=== PATIENT | female | born 1980 | race Caucasian/White ===

== ENCOUNTER 2019-10-17 02:19 | Outpatient (CLI) | payer OTHER, SELFPAY ==
[2019-10-17 18:39] LABS: SARS-CoV-2 RNA PCR Negative
== END 2019-10-17 02:20 | disposition home or self-care (01) ==
LOC: ANHCOVIDDT 02:19
PROVIDERS: Visit Provider Obstetrics & Gynecology
DX: Z01.812 Encounter for preprocedural laboratory examination (principal); Z11.59 Encounter for screening for other viral diseases
CPT/HCPCS: 87635; C9803; U0003

== ENCOUNTER 2019-10-19 01:56 | Day surgery (SDC) | payer OTHER, SELFPAY ==
[2019-10-15 19:12] VITALS: BMI 30.4
--- NOTE | 2019-10-16 13:35 | PM.IMHP ---
H&P: HPI History of Present Illness Chief complaint: Incomplete Ab Narrative: Tessie Velázquez is a 39 year old female admitted for suction D&C secondary to retained products of conception. She underwent termination and has ultrasound Messer proven retained products this and benefits reviewed Review of Systems Review of Systems: All systems reviewed & are unremarkable except as noted in HPI and below PMFSH Social History Social History Smoking status: Never smoker Second hand tobacco smoke exposure: No Alcohol intake: former Substance use: former Substance use type: marijuana Spiritual care concerns: No Meds Home Medications and Allergies Home Medications Medication Instructions Recorded Confirmed Type ibuprofen [Advil] 400 mg PO Q6H PRN 10/15/19 10/15/19 History Allergies Allergy/AdvReac Type Severity Reaction Status Date / Time No Known Allergies Allergy Verified 10/15/19 18:42 Exam Const: General: no acute distress Eyes: General: appearance normal, both eyes and all related structures Neck: Neck: supple and no JVD Thyroid: thyroid normal Resp: Effort & Inspection: normal respiratory effort Auscultation: clear to auscultation bilaterally Cardio: Rate: regular rate Rhythm: regular rhythm GI: Inspection: non-distended GI Palp: Yes Soft to palpation, No Tenderness to palpation present (GI) and No Guarding due to palpation present (GI) Auscultation: normal bowel sounds : General: Yes bladder normal to palpation External Female Exam: normal external appearance Speculum Exam - Vagina: normal vaginal discharge and No vaginal bleeding Speculum Exam - Cervix: nontender Bimanual exam- vagina & uterus: bladder normal to palpation and No Cervical tenderness present OB/external & speculum: No vaginal bleeding Skin: General skin exam: no rashes or lesions noted Extrem: General: normal to inspection and no edema Psych: Mental Status: mental status grossly normal Affect: normal affect Assessment and Plan Additional Plan impression: Retained products Plans: Suction dilatation curettage
--- NOTE | 2019-10-19 02:40 | WPDHPUPDATE1 ---
History and Physical Update Update Date/Time: 10/19/19 02:40 History and Physical has been reviewed, including an updated exam of the patient. There are NO changes in the patient's condition. Risks, benefits, and alternatives have been discussed and questions answered. Patient agrees to proceed with procedure.
--- NOTE | 2019-10-19 11:19 | WPDANESEPPF ---
Anes - Initial Pre Proc Eval Procedure: Operation Date: 10/19/19 13:30 Proposed Procedures p Suction Dilation And Curettage - Jerrell Nagy MD Date/Time: 10/19/19 11:19 Surgeon: Jerrell Nagy MD Pre Op Diagnosis: Incomplete Ab Patient Data Age: 39 Gender: F Height: 1.65 m Weight: 83.01 kg Allergies Allergy/AdvReac Type Severity Reaction Status Date / Time No Known Allergies Allergy Verified 10/15/19 18:42 Home Medications Medication Instructions Recorded Confirmed Type ibuprofen [Advil] 400 mg PO Q6H PRN 10/15/19 10/15/19 History hydrocodone-acetaminophen [[place]] 1 tablet PO Q4H PRN #20 tablet 10/19/19 Rx Patient hx anesthesia problems: none Family hx anesthesia problems: none PMFSH Past Medical History Medical History (Updated 10/19/19 @ 11:19 by Rio Del Real MD) Obesity Social History Social History Smoking status: Never smoker Second hand tobacco smoke exposure: No Alcohol intake: former Alcohol use details: occasionally Substance use: former Substance use type: marijuana Living arrangements: with family Spiritual care concerns: No Anes - Eval Final PreProcedure Day of Procedure 10/19/19 11:19 Patient weight: obese Heart: regular rate and rhythm Lungs: clear to auscultation and normal air movement Airway: Mallampati scale class II Neurological: alert and oriented Last oral intake: >/= 8 hours ASA classification: II Emergent: no Anesthetic plan: proceed Anesthesia type and monitoring: general GIVS and LMA Informed Consent: The patient's anesthetic plan and its attendant risks and benefits were discussed with the patient/family/POA. Questions were solicited and answers provided to the satisfaction of the patient/family/POA.
[2019-10-19 11:51] VITALS: BP 124/82; PULSE 89; RESP 17; TEMP 36.7; O2SAT 98
[2019-10-19] MEDS: LACTATED RINGERS 1,000 ML 30 ML IV CONT (12:10)
[2019-10-19] MEDS: ACETAMINOPHEN 500 MG TABLET 1000 MG PO (12:15)
[2019-10-19 12:24] LABS: Hematocrit 40.8 % (37.0-47.0); Hemoglobin 13.9 g/dL (12.0-15.0)
--- NOTE | 2019-10-19 13:29 | P.OP_ITS ---
Procedure Note - Detailed Date of procedure: 10/19/19 Pre-op diagnosis: Incomplete Ab Surgeon: Jerrell Nagy MD Postop diagnosis: Incomplete AB Procedure: Suction dilatation curettage EBL: 5Cc Anesthesia: IV sedation local Complications: None Findings: Minimal tissue Description of procedure: Patient was prepped draped in normal sterile fashion placed in dorsal lithotomy position. Under excellent IV sedation weighted speculum placed in posterior fornix of vagina. Anterior lip of the cervix gras ped with a single-tooth tenaculum. Uterus sounded to 9cm. 2.5cc of 1% xylocaine anesthesia placed at 2:48 a.m. and 10:00 a.m. respectively of the cervix. Serial dilatation with fragmented dilators performed followed passes of the 9. Suction curette removing a minimal amount of irregular tissue. When a good grating sound was heard the instruments removed. There were no immediate complications. All sponge, needle, instrument counts were correct. Patient went to recovery in satisfactory condition
[2019-10-19 13:31] VITALS: BP 134/91; PULSE 82; RESP 16
[2019-10-19 14:01] VITALS: BP 128/72; PULSE 85; RESP 16
[2019-10-19 14:15] VITALS: BP 132/75; PULSE 78; RESP 16
== END 2019-10-19 14:30 | disposition home or self-care (01) ==
PROVIDERS: PCP Physician Assistant; Visit Provider Obstetrics & Gynecology
PROC: (CPT 59812; principal; 2019-10-19 13:30)
DX: O03.4 Incomplete spontaneous abortion without complication (principal)
CPT/HCPCS: 59812; 36415; 85014; 85018; 85461; 88305; A9270; J2250; J2704; J3010; J7120

== ENCOUNTER 2020-07-02 17:15 | Outpatient (CLI) | payer OTHER, SELFPAY | END 2020-07-02 17:16 | disposition home or self-care (01) | LOC: ANHCOVIDVC 17:15 | PROVIDERS: PCP Physician Assistant | DX: Z23 Encounter for immunization (principal) | CPT/HCPCS: 0001A; 91300 ==

== ENCOUNTER 2020-07-23 17:08 | Outpatient (CLI) | payer OTHER, SELFPAY | END 2020-07-23 17:09 | LOC: ANHCOVIDVC 17:09 | PROVIDERS: PCP Physician Assistant | DX: Z23 Encounter for immunization (principal) | CPT/HCPCS: 0002A; 91300 ==

== ENCOUNTER → 2021-08-10 15:10 | Outpatient (CLI) | payer BC, SELFPAY ==
--- NOTE | ~2021-08-10 | MM_ITS ---
EXAMINATION: MM screening berna BI w navi HISTORY: Screening mammogram TECHNIQUE: Craniocaudal and mediolateral oblique 3-D tomosynthesis images were obtained and synthetic 2-D images were generated. CAD analysis was submitted and interpreted. COMPARISON: None, baseline BREAST PARENCHYMAL COMPOSITION: There are scattered areas of fibroglandular density. FINDINGS: There is no suspicious mass, calcification, or architectural distortion to suggest malignan cy in either breast. IMPRESSION: 1. No mammographic evidence of malignancy. 2. Recommend routine screening mammography in one year. BI-RADS Category 1: Negative Reviewed, dictated and finalized at location A.
== END ==
PROVIDERS: PCP Physician Assistant; Visit Provider Obstetrics & Gynecology
DX: Z12.31 Encounter for screening mammogram for malignant neoplasm of breast (principal)
CPT/HCPCS: 77063; 77067

== ENCOUNTER → 2022-11-02 14:43 | Outpatient (CLI) | payer BC, SELFPAY ==
--- NOTE | ~2022-11-02 | MM_ITS ---
EXAMINATION: MM screening berna BI w navi HISTORY: Screening mammogram TECHNIQUE: Craniocaudal and mediolateral oblique 3-D tomosynthesis images were obtained and synthetic 2-D images were generated. CAD analysis was submitted and interpreted. COMPARISON: 08/10/2021 BREAST PARENCHYMAL COMPOSITION: There are scattered areas of fibroglandular density. FINDINGS: No suspicious mass, calcification, or architectural distortion are identified in either [place] ast to suggest malignancy. There has been no suspicious interval change. IMPRESSION: 1. No mammographic evidence of malignancy. 2. Recommend routine screening mammography in one year. BI-RADS Category 1: Negative Reviewed, dictated and finalized at location A.
== END ==
PROVIDERS: PCP Obstetrics & Gynecology; Visit Provider Obstetrics & Gynecology
DX: Z12.31 Encounter for screening mammogram for malignant neoplasm of breast (principal)
CPT/HCPCS: 77063; 77067

== ENCOUNTER 2025-01-17 14:10 | Outpatient (CLI) | payer BC, SELFPAY ==
--- NOTE | ~2025-01-17 | MM_ITS ---
EXAMINATION: MM screening berna BI w navi HISTORY: Screening TECHNIQUE: Craniocaudal and mediolateral oblique 3-D tomosynthesis images were obtained and synthetic 2-D images were generated. CAD analysis was submitted and interpreted. COMPARISON: Comparison to multiple prior studies sequentially, with oldest reviewed study dated , 08/10/2021 BREAST PARENCHYMAL COMPOSITION: There are scattered areas of fibroglandular density. FINDINGS: There is no evidence of suspicious mass, calcification, or architectural distortion to suggest malignancy in either breast. IMPRESSION: 1. No mammographic evidence of malignancy. 2. Recommend routine screening mammography in one year. BI-RADS Category 1: Negative Reviewed, dictated and finalized at location B.
== END 2025-01-17 14:11 | disposition home or self-care (01) ==
LOC: MICIMG 14:10
PROVIDERS: PCP Obstetrics & Gynecology; Visit Provider Obstetrics & Gynecology
DX: Z12.31 Encounter for screening mammogram for malignant neoplasm of breast (principal)
CPT/HCPCS: 77063; 77067